=== PATIENT | female | born 1995 | race Caucasian/White ===

== ENCOUNTER 2021-06-09 01:04 | Inpatient (IN) | payer OTHER ==
[~2021-06-09] VITALS: Ht 160 cm; Wt 61.2 kg
--- NOTE | ~2021-06-09 | O ---
[facility] [place] [address] OPERATIVE REPORT Name: GERMAN BROWN Room #: 449-I ADM IN M.R.#: [id number] Admission: 06/09/21 Attend Phys: Deon Salmeron, Discharge: Date of : 89 Report #: [id number] THIS REPORT FOR: cc: SEVERINO BAUM MD Physician not on staff Deon Salmeron MD ~ DATE OF SERVICE: 06/09/2021 DATE OF SERVICE: 06/09/2021 PREOPERATIVE DIAGNOSIS: Acute appendicitis. POSTOPERATIVE DIAGNOSIS: Acute appendicitis. OPERATION: Laparoscopic appendectomy. SURGEON: Deon Salmeron MD ANESTHESIA: General. ESTIMATED BLOOD LOSS: Minimal. SPECIMENS: Appendix. DESCRIPTION OF PROCEDURE: After informed consent was obtained, the patient was brought to the operating room and placed supine. SCDs were placed and working, preoperative antibiotics were administered, general anesthesia was induced. The abdomen was prepped and draped in the usual sterile fashion. A 10 mm incision was made below the umbilicus. Fascia was incised and a trocar was placed. Pneumoperitoneum was established. A right upper quadrant and left lower quadrant 5 mm trocar was placed under direct vision. The appendix was grasped and retracted anteriorly. This was retrocecal and had to be freed up from the lateral attachments. The mesoappendix was ligated using a NEHA lopez load stapler. Base of the appendix was stapled off with a NEHA blue load stapler. Appendix was placed into an Endopouch and removed. The fascia was then closed with a [id number] 0 Vicryl. Skin was closed with 4-0 Monocryl. Incisions were dressed with Steri-Strips. COMPLICATIONS: None. DISPOSITION: The patient was taken to recovery in satisfactory condition. By: [id number] Deon Salmeron MD /nt
[2021-06-09 01:14] VITALS: BP 121/71
[2021-06-09] MEDS ORDERED: FLEXERIL PO (01:19)
[2021-06-09] MEDS ORDERED: OXYCODONE HCL E10 MG PO (01:20)
[2021-06-09] MEDS ORDERED: NEURONTIN600 MG PO (01:20)
[2021-06-09 02:48] LABS: URINE BILIRUBIN 1+ (Negative); URINE BLOOD TRACE (Negative); URINE CLARITY SL CLOUDY; URINE COLOR YELLOW; URINE GLUCOSE-RANDOM* NEGATIVE (Negative); URINE KETONES NEGATIVE (Negative); URINE NITRITE-REFLEX NEGATIVE (Negative); URINE PROTEIN (DIPSTICK) NEGATIVE (Negative); URINE SPECIFIC GRAVITY 1.025 (1.005-1.035)
[2021-06-09 02:50] LABS: URINE LEUKOCYTES-REFLEX 2+ (Negative)
[2021-06-09 02:51] LABS: ABSOLUTE NEUTROPHILS 1.5 thou/uL (1.4-8.2); BASOPHILS 0.6 % (0.0-2.0); EOSINOPHILS 3.4 % (0.0-3.0); HEMATOCRIT 31.8 % (37.0-47.0); HEMOGLOBIN 10.5 gm/dL (12.0-15.0); LYMPHOCYTES 40.1 % (24.0-44.0); MCH 29.3 pg (26.0-34.0); MCHC 33.1 g/dL (28.0-37.0); MCV 88.3 fL (80.0-100.0); MONOCYTES 12.7 % (1.0-8.0); PLATELET COUNT 137 thou/uL (150-400); POLYS 43.2 % (36.0-66.0); RDW 16.7 % (10.5-14.5); WBC 3.5 thou/uL (4.0-11.0)
[2021-06-09 02:56] LABS: CALCIUM 9.5 mg/dL (8.5-10.1); CREATININE 0.6 mg/dL (0.6-1.0); POTASSIUM 3.5 mmol/L (3.5-5.1)
[2021-06-09 03:02] LABS: ALBUMIN 3.3 g/dL (3.4-5.0); TOTAL BILIRUBIN 2.1 mg/dL (0.2-1.0); TOTAL PROTEIN 8.4 g/dL (6.4-8.2)
[2021-06-09 03:05] LABS: CALCIUM OXALATE 4-10 Moderate /LPF (None Seen); HYALINE CASTS 0-3 Few /LPF (None Seen); MUCUS 4-6 Moderate strn/LPF (None Seen); SQUAMOUS 4-10 Moderate /LPF (0-3); URINE RBC 1-2 Rare /HPF (NONE SEEN); URINE WBC-REFLEX 6-15 Few /HPF (0-5)
[2021-06-09 06:32] VITALS: BP 100/63
[2021-06-09 07:11] VITALS: BP 104/60
[2021-06-09 14:34] LABS: INR 1.4
--- NOTE | 2021-06-09 15:18 | NUR ---
TODAY THIS PT HAS BEEN NSR ON THE HEART MONITOR AND HAS HAD SOME STATED PAIN IN WHICH SHE WAS MEDICATED HER IV WENT BAD AND IV TEAM WAS CONTACTED. SHE IS CURRENTLY NPO AND GEARING UP FOR SURGERY. SHE IS OTHERWISE IN HER ROOM AWAITING FOR THEM TO TAKE HER TO SURGERY
--- NOTE | 2021-06-09 17:01 | NUR ---
A #4F POWER MIDLINE PLACED IN THE RIGHT BASILIC PER HOSPITAL POLICY. DISCUSED RISKS AND BENIFITS AND A VERBAL CONSENT OBTAINED. THE LINE WAS TRIMMED TO 12CM AND ADVANCED WITHOUT DIFFICULTY. SECURED AND RELEASED FOR USE
[2021-06-09 21:00] VITALS: BP 112/69
[2021-06-09 22:00] VITALS: BP 119/70
[2021-06-09 23:00] VITALS: BP 109/58
[2021-06-10] VITALS: BP 106/56
[2021-06-10 01:05] VITALS: BP 107/62
--- NOTE | 2021-06-10 04:59 | NUR ---
PT CARE ASSUMED WITH PT AT THE SURGERY.PT CAME UP TO THE UNIT AT 20:00 .VS WNL PT ON 3L OF O2 VIA NC.PT C/O PAIN AND PAIN PARTIALLY RELIEF BY MORPHINE PRN.IV ACCESS ON LINDA MIDLINE SL.PT IS UP WITH X1 ASSIST AND VOIDED.PT C/O NAUSEA BUT NO VOMITING AND TOLERATING FLUID .3 LAP SITES WITH DERMABAND C/D/I .WILL CONTINUE TO MONITOR PER POC
[2021-06-10 07:08] VITALS: BP 118/62
[2021-06-10] MEDS ORDERED: OXYCODONE HCL5 M1 PO (14:47)
[2021-06-10 15:20] VITALS: BP 118/62
[2021-06-10 15:21] VITALS: BP 118/62
--- NOTE | 2021-06-10 17:02 | NUR ---
Assumed pt care this am vs stable, 4 lap sites with derma wynne, no infections noted. Pain is managed with medications, partial relief is noted. POC followed, IV removed, DC instructions given to the pt. Prescriptions sent to her pharmacy. Pt has been picked up by boyfriend and is now dc.
== END 2021-06-10 17:00 | disposition home or self-care (01) | DRG 343 ==
LOC: ER 01:04 → EROBS 06:29 → 4W 07:48
PROVIDERS: Anesthesiology; Emergency Medicine; ADMIT Surgery; ATTEND Surgery
PROC: 05HB33Z Insertion of Infusion Device into Right Basilic Vein, Percutaneous Approach (ICD-10-PCS; principal; 2021-06-09)
PROC: 0DTJ4ZZ Resection of Appendix, Percutaneous Endoscopic Approach (ICD-10-PCS; principal; 2021-06-09)
DX: K35.80 Unspecified acute appendicitis (principal); F17.210 Nicotine dependence, cigarettes, uncomplicated; F12.90 Cannabis use, unspecified, uncomplicated; Z20.822 Contact with and (suspected) exposure to COVID-19; Z88.8 Allergy status to other drugs, medicaments and biological substances
CPT/HCPCS: 10040; 27000; 50010; 50101; 50411; 50555; 50739; 50740; 51489; 52265; 52266; 53307; 53312; 53314; 56525; 56526; 58574; 58867; 62110; 62900; 70005